=== PATIENT | female | born 1975 ===

== ENCOUNTER 2017-02-28 17:43 | Emergency (ER) | payer MEDICARE ==
--- NOTE | ~2017-02-28 | ER ---
PATIENT'S NAME: SOSA GREER [facility] [place] AGE: 41 Y [address] ROOM: [place] [address] LOCATION: ED ADMIT DATE: 02/28/2017 ER/Outpatient Report DISCHARGE DATE: 02/28/2017 FAMILY PHYSICIAN: Andrea Chan MD ATTENDING PHYSICIAN: Terrell Le Time of Arrival: 1747 hours. Time of Evaluation: 1747 hours. CHIEF COMPLAINT: Rash. HISTORY OF PRESENT ILLNESS: The patient states that she has noted a rash of the left upper arm for the past week. It has been itchy. It seems to be getting worse instead of better. She has been using hydrocortisone spray and cortisone ointment on it. She is just concerned that she is allergic to an antibiotic that she got started on last week for urinary tract infection. CURRENT ALLERGIES AND MEDICATIONS: On her chart and reviewed by me. PAST MEDICAL HISTORY: Recurrent UTI that she is on doxycycline for, PTSD, noninsulin-dependent diabetes, anxiety. PAST SURGICAL HISTORY: x2. SOCIAL HISTORY: Denies use of tobacco, drugs, or alcohol. REVIEW OF SYSTEMS: All negative other than those mentioned in the HPI. PHYSICAL EXAMINATION: VITAL SIGNS: The patient weighs 109.2 kg, blood pressure is 119/79, pulse of 106, respirations 16, temperature of 98.7, O2 saturation is 95% on room air. GENERAL: She is awake, alert, and oriented x4. SKIN: [place], warm, and dry. RESPIRATIONS: Even and nonlabored. Lung sounds are clear throughout. HEART: Regular rate and rhythm. The patient walks with a steady even gait. SKIN: The patient has a pinpoint red rash to her left upper arm that she has been itching. She does have some of the same rash on the right upper arms. No welts are noted. PATIENT'S NAME: SOSA GREER [facility] [place] AGE: 41 Y [address] ROOM: [place] [address] LOCATION: [facility] ADMIT DATE: 02/28/2017 ER/Outpatient Report DISCHARGE DATE: 02/28/2017 FAMILY PHYSICIAN: Andrea Chan MD ATTENDING PHYSICIAN: Terrell Le EMERGENCY DEPARTMENT COURSE: Discussed with the patient that I feel this is more heat related as a result of being on the doxycycline and being outside in the sun. I did give her Benadryl 25 mg p.o. She had taken 25 mg at home 1 hour prior to arrival. IMPRESSION: Rash related to heat. PLAN: Home, rest, fluids. Cortisone cream is okay. Prescription was written for hydroxyzine for the itching. She is to follow up with her primary provider in the next 2 to 3 days if symptoms persist or worsen. She verbalized understanding. TIFFANIE LEE APRN FOR MD ROXANNA LEA/sumanth /[id number] d: 02/28/17 2355 t: 03/10/17 0709, OUTPATIENT REPORT
== END 2017-02-28 18:14 | disposition disaster alternative care site (69) ==
LOC: GMED 17:43
DX: L74.0 Miliaria rubra (principal); E11.9 Type 2 diabetes mellitus without complications; N39.0 Urinary tract infection, site not specified; F41.9 Anxiety disorder, unspecified; Z79.84 Long term (current) use of oral hypoglycemic drugs; Z79.899 Other long term (current) drug therapy